=== PATIENT | female | born 1980 | race Caucasian/White ===

== ENCOUNTER 2017-04-07 14:04 | Emergency (ER) | payer SELFPAY ==
[~2017-04-07] VITALS: Ht 170.2 cm; Wt 151.4 kg
[2017-04-07] MEDS ORDERED: PROZAC20 M1 PO (15:19)
[2017-04-07] MEDS ORDERED: CATAPRES0.2 M1 PO (15:19)
[2017-04-07] MEDS ORDERED: LATUDA40 MG PO (15:20)
[2017-04-07] MEDS ORDERED: SEROQUEL50 MG PO (15:20)
[2017-04-07] MEDS ORDERED: IBU800 M1 PO (15:28)
[2017-04-07] MEDS ORDERED: SINGULAIR PO (15:28)
[2017-04-07] MEDS ORDERED: CYCLOBENZAPRINE10 M1 PO (15:28)
[2017-04-07] MEDS ORDERED: PROAIR HFA0.09 MG/AC IH (15:28)
[2017-04-07 16:05] VITALS: BP 118/64
== END 2017-04-07 15:37 | disposition home or self-care (01) ==
LOC: ED 14:04
DX: R07.9 Chest pain, unspecified (principal); I10 Essential (primary) hypertension; F41.9 Anxiety disorder, unspecified; J45.909 Unspecified asthma, uncomplicated; R73.03 Prediabetes; F17.210 Nicotine dependence, cigarettes, uncomplicated; M54.2 Cervicalgia; M54.6 Pain in thoracic spine; M54.5 Low back pain; G89.29 Other chronic pain; D35.2 Benign neoplasm of pituitary gland; Z87.898 Personal history of other specified conditions

== ENCOUNTER → 2017-04-13 | Outpatient (REF) ==
[2017-04-07 16:05] VITALS: BP 118/64
[~2017-04-13] MED LIST: CATAPRES0.2 M1 PO; CYCLOBENZAPRINE10 M1 PO; IBU800 M1 PO; LATUDA40 MG PO; PROAIR HFA0.09 MG/AC IH; PROZAC20 M1 PO; SEROQUEL50 MG PO; SINGULAIR PO
== END ==
LOC: LAB 14:15
DX: Z62.810 Personal history of physical and sexual abuse in childhood (principal)